=== PATIENT | male | born 1990 | race Hispanic/Latino ===

== ENCOUNTER 2018-07-11 23:51 | Emergency (ER) | payer SELFPAY ==
[2018-07-11 23:59] VITALS: BP 110/54; PULSE 69; RESP 20; TEMP 98.2; O2SAT 98
[2018-07-12] MEDS ORDERED: Tetanus/Diphtheria Toxoids 0.5 ml Syringe IM ONE (00:13)
[2018-07-12] MEDS ORDERED: Tdap Vaccine 0.5 ml Vial (10-64 yrs) IM ONE (00:18)
[2018-07-12] MEDS ORDERED: Bacitracin 500 Units/gm Oint Foilpak UD ONE (00:19)
[2018-07-12] MEDS ORDERED: Bacitracin Ointment 30 GM TUBE TOP STA (00:21)
--- NOTE | 2018-07-12 00:28 | C.PDOC ---
History Of Present Illness 28 year old male presents to the ED for evaluation after he accidentally stepped on a nail with his left foot prior to arrival. Patient states he was wearing open-toed shoes at the time and the injury occurred while at home. Patient is up-to-date with Tetanus immunization. He denies any other injuries. Time Seen by Provider: 07/12/18 00:02 Chief Complaint (Nursing): Medical Clearance History Per: Patient History/Exam Limitations: no limitations Onset/Duration Of Symptoms: Hrs Current Symptoms Are (Timing): Still Present Additional History Per: Patient Past Medical History Reviewed: Historical Data, Nursing Documentation, Vital Signs Vital Signs: Last Vital Signs Temp 98.2 F 07/11/18 23:54 Pulse 69 07/11/18 23:54 Resp 20 07/11/18 23:54 BP 110/54 L 07/11/18 23:54 Pulse Ox 98 07/12/18 02:51 - Medical History PMH: No Chronic Diseases Surgical History: No Surg Hx Family History: States: Unknown Family Hx - Social History Hx Alcohol Use: No Hx Substance Use: No - Immunization History Hx Tetanus Toxoid Vaccination: No Hx Influenza Vaccination: No Hx Pneumococcal Vaccination: No Review Of Systems Skin: Positive for: Other (stepped on a nail, left foot ) Physical Exam - Physical Exam Appears: Non-toxic, No Acute Distress Skin: Normal Color, Warm, Dry, Other (small puncture wound to plantar aspect of left foot. no active bleeding. no foreign body visualized ) Extremity: Normal ROM, Capillary Refill (less than 2 seconds ), No Deformity, No Swelling Neurological/Psych: Oriented x3, Normal Speech, Normal Cognition ED Course And Treatment O2 Sat by Pulse Oximetry: 98 (on RA) Pulse Ox Interpretation: Normal Progress Note: Wound was cleaned with normal saline. Bacitracin TOP applied. Wound dressed with dry, sterile dressing. Patient tolerated well with minimal bleeding. Patient is resting comfortably, showing no signs of distress and is stable for discharge. Patient is advised to follow up with his PMD within 1-2 days for further evaluation. 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 - Scribe Statement The provider has reviewed the documentation as recorded by the Scribe (Tiffany Park) All medical record entries made by the Scribe were at my direction and personally dictated by me. I have reviewed the chart and agree that the record accurately reflects my personal performance of the history, physical exam, medical decision making, and the department course for this patient. I have also personally directed, reviewed, and agree with the discharge instructions and disposition.
== END 2018-07-12 00:34 | disposition home or self-care (01) ==
LOC: C.ER 23:51
DX: S91.332A Puncture wound without foreign body, left foot, initial encounter (principal); W45.0XXA Nail entering through skin, initial encounter

== ENCOUNTER 2018-09-10 00:24 | Emergency (ER) | payer SELFPAY ==
[2018-09-10 00:36] VITALS: RESP 18; O2SAT 99
[2018-09-10] MEDS ORDERED: Sodium Chloride 0.9% 1,000 ML IV ONE (01:04)
--- NOTE | 2018-09-10 01:04 | C.PDOC ---
History Of Present Illness 28 year old male presents to the ED c/o sharp, stabbing right flank pain radiating towards his right groin that started tonight. Patient states his pain is at 4/10 discomfort. Patient denies fever, chills, nausea, vomit, diarrhea, dy suria, hematuria, rash, injury, fall, trauma. Time Seen by Provider: 09/10/18 01:04 Chief Complaint (Nursing): Male Genitourinary History Per: Patient History/Exam Limitations: no limitations Onset/Duration Of Symptoms: Hrs Current Symptoms Are (Timing): Still Present Quality Of Discomfort: Sharp, Stabbing Associated Symptoms: denies: Nausea, Vomiting, Diarrhea, Urinary Symptoms Recent travel outside of the [place]: No Additional History Per: Patient Past Medical History Reviewed: Historical Data, Nursing Documentation, Vital Signs Vital Signs: Last Vital Signs Temp 97.5 F L 09/10/18 00:34 Pulse 61 09/10/18 00:34 Resp 18 09/10/18 00:34 BP 113/74 09/10/18 00:34 Pulse Ox 99 09/10/18 00:34 - Medical History PMH: No Chronic Diseases Denies: Chronic Kidney Disease Surgical History: No Surg Hx Family History: States: Unknown Family Hx - Social History Hx Alcohol Use: No Hx Substance Use: No - Immunization History Hx Tetanus Toxoid Vaccination: No Hx Influenza Vaccination: No Hx Pneumococcal Vaccination: No Review Of Systems Constitutional: Negative for: Fever, Chills Cardiovascular: Negative for: Chest Pain Respiratory: Negative for: Shortness of Breath Gastrointestinal: Positive for: Abdominal Pain. Negative for: Nausea, Vomiting, Diarrhea Genitourinary: Negative for: Dysuria, Hematuria Musculoskeletal: Positive for: Back Pain Skin: Negative for: Rash Neurological: Negative for: Weakness, Numbness Physical Exam - Physical Exam Appears: Non-toxic, No Acute Distress Skin: Warm, Dry Head: Normacephalic Eye(s): bilateral: Normal Inspection Neck: Supple Chest: Symmetrical Cardiovascular: Rhythm Regular Respiratory: No Rales, No Rhonchi, No Wheezing Gastrointestinal/Abdominal: Soft, Tenderness (right flank ), No Guarding, No Rebound Extremity: Bilateral: Atraumatic, Normal Color And Temperature, Normal ROM Neurological/Psych: Oriented x3, Normal Speech, Normal Cognition Gait: Steady ED Course And Treatment - Laboratory Results Result Diagrams: 09/10/18 01:46 09/10/18 01:46 O2 Sat by Pulse Oximetry: 99 (ON RA) Pulse Ox Interpretation: Normal Progress Note: Plan: - Labs. - IV fluids. - Toradol 30 mg IVP. - UA Reevaluation Time: 03:14 Reassessment Condition: Improved Disposition Counseled Patient/Family Regarding: Studies Performed, Diagnosis, Need For Follo wup, Rx Given - Disposition Referrals: Simone Schwartz MD [Staff Provider] - Disposition: HOME/ ROUTINE Disposition Time: 01:04 Condition: FAIR Additional Instructions: Please return if symptoms recur Prescriptions: Ibuprofen [Motrin Tab] 800 mg PO TID PRN #15 tab PRN Reason: Pain, Moderate (4-7) Tamsulosin HCl [Flomax] 0.4 mg PO DAILY #15 cap.er.24h Instructions: Kidney Stones (DC), Renal Colic (DC) Forms: [facility] (Danish) - Clinical Impression Clinical Impression: Kidney stone - Scribe Statement The provider has reviewed the documentation as recorded by the Scribe Triston Najera All medical record entries made by the Scribe were at my direction and personally dictated by me. I have reviewed the chart and agree that the record accurately reflects my personal performance of the history, physical exam, medical decision making, and the department course for this patient. I have also personally directed, reviewed, and agree with the discharge instructions and disposition.
[2018-09-10] MEDS ORDERED: Sodium Chloride 0.9% 1,000 ML ONE (01:39)
[2018-09-10 01:50] LABS: BASO # 0.1 K/uL (0.0-0.2); BASO % 1.2 % (0.0-2.0); EOS # 0.1 K/uL (0.0-0.7); EOS % 2.2 % (0.0-4.0); HEMOGLOBIN 15.4 g/dL (12.0-18.0); LYMPH # 1.7 K/uL (1.0-4.3); LYMPH % 35.8 % (20.0-40.0); MEAN CELL VOLUME 87.1 fL (80.0-94.0); MEAN CORPUSCULAR HGB CONC 34.4 g/dL (33.0-37.0); MEAN PLATELET VOLUME 8.7 fL (7.2-11.7); MONO # 0.6 K/uL (0.0-0.8); MONO % 11.8 % (0.0-10.0); NEUT # 2.3 K/uL (1.8-7.0); NRBC % 0.1 % (0.0-2.0); RBC 5.15 Mil/uL (4.40-5.90); RED CELL DISTRIBUTION WIDTH 13.4 % (11.5-14.5); WHITE BLOOD COUNT 4.7 K/uL (4.8-10.8)
[2018-09-10 02:06] LABS: ALB/GLOB RATIO 1.5 (1.0-2.1); ALBUMIN 4.2 g/dL (3.5-5.0); ALT/SGPT 79 U/L (21-72); AST/SGOT 37 U/L (17-59); BLOOD UREA NITROGEN 13 mg/dL (9-20); CALCIUM 9.2 mg/dl (8.6-10.4); GFR NON-AFRICAN AMERICAN > 60; LIPASE 94 U/L (23-300)
[2018-09-10 02:24] VITALS: BP 119/62; PULSE 56; TEMP 97.8
--- NOTE | 2018-09-10 09:22 | CT ---
Date of service: 09/10/2018 PROCEDURE: CT Abdomen and Pelvis without intravenous contrast HISTORY: right flank pain, history of kidney stone COMPARISON: None. TECHNIQUE: Multiple contiguous axial images were performed through the pelvis without the use of intravenous contrast. Subsequently, sagittal and coronal reformatted images were obtained. Radiation dose: Total exam DLP = 1140.68 mGy-cm. This CT exam was performed using one or more of the following dose reduction techniques: Automated exposure control, adjustment of the mA and/or kV according to patient size, and/or use of iterative reconstruction technique. FINDINGS: LOWER THORAX: Unremarkable. LIVER: Unremarkable. No gross lesion or ductal dilatation. Punctate hypodensity in the right hepatic lobe, too small to adequately characterize. GALLBLADDER AND BILE DUCTS: Unremarkable. PANCREAS: Unremarkable. No gross lesion or ductal dilatation. SPLEEN: Unremarkable. Splenule. ADRENALS: Unremarkable. No mass. KIDNEYS AND URETERS: Punctate 1 millimeter nonobstructive calculus in the lower pole of the right kidney. In addition, within the region of the distal right ureter; on series 3, image 40, there is a 2 millimeter calcific foci which may represent a small calculus versus adjacent calcified phlebolith. VASCULATURE: Unremarkable. No aortic aneurysm. BOWEL: Unremarkable. No obstruction. No gross mural thickening. APPENDIX: Unremarkable. Normal appendix. PERITONEUM: Unremarkable. No free fluid. No free air. LYMPH NODES: Few shotty inguinal and para-aortic lymph nodes. Few shotty mesenteric lymph nodes. BLADDER: Unremarkable. REPRODUCTIVE: Unremarkable. BONES: No acute fracture. OTHER FINDINGS: None. IMPRESSION: 1. Within the region of the distal right ureter; on series 3, image 40, there is a 2 millimeter calcific foci which may represent a small calculus versus adjacent calcified phlebolith. No gross ureteral dilatation proximal to this calcification. No gross renal hydronephrosis. Clinical correlation. 2. Punctate 1 millimeter nonobstructive calculus in the lower pole of the right kidney. Preliminary report was generated at 2:40 a.m. on 09/10/[address] Román Bocanegra from [employer].
== END 2018-09-10 03:25 | disposition home or self-care (01) ==
LOC: C.ER 00:24
DX: N20.0 Calculus of kidney (principal)
CPT/HCPCS: 74176; 80053; 83690; 85025; 96374; 99284; J1885; J7030

== ENCOUNTER 2018-09-14 06:29 | Emergency (ER) | payer SELFPAY ==
[2018-09-14] MEDS ORDERED: Sodium Chloride 0.9% 1,000 ML IV ONE (07:16)
[2018-09-14 07:27] LABS: HEMOGLOBIN 16.3 g/dL (12.0-18.0); MEAN CELL VOLUME 85.5 fL (80.0-94.0); MEAN CORPUSCULAR HEMOGLOBIN 30.1 pg (27.0-31.0); MEAN CORPUSCULAR HGB CONC 35.2 g/dL (33.0-37.0); MEAN PLATELET VOLUME 9.2 fL (7.2-11.7); RBC 5.43 Mil/uL (4.40-5.90); RED CELL DISTRIBUTION WIDTH 13.3 % (11.5-14.5)
--- NOTE | 2018-09-14 07:30 | C.PDOC ---
History Of Present Illness 28 y/o male,w/PMhx of kidney stones, presents to the ER complaining of right sided flank pain which began at 5 am. Patient states that the pain radiates to the right side of the abdomen. Patient reports that he was nauseous and he v omited. He notes he was evaluated for same complaint in [facility] ER on 09/10/18. He had a CT scan which shows ? stone in the right ureter. Denies having dysuria, hematuria, fever, and chills. Time Seen by Provider: 09/14/18 07:28 Chief Complaint (Nursing): Abdominal Pain History Per: Patient History/Exam Limitations: no limitations Onset/Duration Of Symptoms: Hrs Current Symptoms Are (Timing): Still Present Severity: Moderate Past Medical History Reviewed: Historical Data, Nursing Documentation, Vital Signs Vital Signs: Last Vital Signs Temp 97.4 F L 09/14/18 06:32 Pulse 66 09/14/18 06:32 Resp 18 09/14/18 06:32 BP 138/94 H 09/14/18 06:32 Pulse Ox 98 09/14/18 06:32 - Medical History PMH: No Chronic Diseases Denies: Chronic Kidney Disease Surgical History: No Surg Hx Family History: States: No Known Family Hx - Social History Hx Alcohol Use: No Hx Substance Use: No - Immunization History Hx Tetanus Toxoid Vaccination: No Hx Influenza Vaccination: No Hx Pneumococcal Vaccination: No Review Of Systems Except As Marked, All Systems Reviewed And Found Negative. Constitutional: Negative for: Fever, Chills Gastrointestinal: Positive for: Nausea, Vomiting Genitourinary: Negative for: Dysuria, Hematuria Musculoskeletal: Positive for: Other (right sided flank pain) Physical Exam - Physical Exam Appears: Non-toxic, No Acute Distress Skin: Normal Color, Warm, Dry Head: Atraumatic, Normacephalic Eye(s): bilateral: Normal Inspection Nose: Normal Oral Mucosa: Moist Neck: Supple Chest: Symmetrical Cardiovascular: Rhythm Regular Respiratory: Normal Breath Sounds, No Rales, No Rhonchi, No Wheezing Gastrointestinal/Abdominal: Normal Exam, Soft, No Tenderness, No Guarding, No Rebound Back: CVA Tenderness (mild right sided flank CVA tenderness) Neurological/Psych: Oriented x3, Normal Speech ED Course And Treatment - Laboratory Results Result Diagrams: 09/14/18 07:15 09/14/18 07:15 Lab Interpretation: Normal O2 Sat by Pulse Oximetry: 98 (RA) Pulse Ox Interpretation: Normal Progress Note: Treated with IVF NSS and toradol IV. On re evaluation abdomen soft. C/O abdominal Pain treated with tylenol 975 mg PO. Bladder scan 38 ml. On re-evaluation in no distress Reassessment Condition: Improved Medical Decision Making Medical Decision Making: Plan: --Labs --UA --Zofran IV --Toradol IV --IV Fluids Disposition Counseled Patient/Family Regarding: Studies Performed, Diagnosis, Need For Followup, Rx Given - Disposition Referrals: Simone Schwartz MD [Staff Provider] - [facility] [Outside] [facility] [Outside] Disposition: HOME/ ROUTINE Disposition Time: 09:30 Condition: STABLE Additional Instructions: Follow up with clinic and urology for further evaluation Naproxen as needed for pain Prescriptions: Naproxen [Naprosyn] 1 tab PO BID PRN #25 tab PRN Reason: Pain Instructions: Flank Pain, 4 Gram Sodium Diet (ED) Forms: [employer] (Slovenian) - POA Present On Arrival: None - Clinical Impression Clinical Impression: Kidney stone, Flank pain - 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 - Scribe Statement The provider has reviewed the documentation as recorded by the Radhaibe Arelis Gavin Provider Attestation All medical record entries made by the Radhaibe were at my direction and personally dictated by me. I have reviewed the chart and agree that the record accurately reflects my personal performance of the history, physical exam, medical decision making, and the department course for this patient. I have also personally directed, reviewed, and agree with the discharge instructions and disposition.
[2018-09-14 07:40] LABS: SQUAMOUS EPITHIAL < 1 /hpf (0-5); URINE BACTERIA RARE (<OCC); URINE BILIRUBIN NEGATIVE (NEGATIVE); URINE BLOOD 3+ (NEGATIVE); URINE CALCIUM OXALATE CRYSTALS RARE /hpf (<OCC); URINE CLARITY Hazy (Clear); URINE COLOR Amber (YELLOW); URINE GLUCOSE (UA) NORMAL (Normal); URINE LEUKOCYTE ESTERASE NEG Leu/uL (Negative); URINE PROTEIN 2+ mg/dL (NEGATIVE)
[2018-09-14 08:18] LABS: ALB/GLOB RATIO 1.5 (1.0-2.1); ALBUMIN 4.7 g/dL (3.5-5.0); ALT/SGPT 107 U/L (21-72); AST/SGOT 58 U/L (17-59); BLOOD UREA NITROGEN 20 mg/dL (9-20); CALCIUM 9.4 mg/dl (8.6-10.4); GFR NON-AFRICAN AMERICAN > 60
[2018-09-14 11:04] VITALS: BP 146/90; PULSE 67; RESP 18; TEMP 97.9
[2018-09-14 16:13] VITALS: O2SAT 98
== END 2018-09-14 09:47 | disposition home or self-care (01) ==
LOC: C.ER 06:29
DX: N20.0 Calculus of kidney (principal); R10.9 Unspecified abdominal pain; Z87.442 Personal history of urinary calculi
CPT/HCPCS: 36415; 80053; 81001; 85027; 96361; 96374; 96375; 99285; J1885; J2405; J7030